=== PATIENT | male | born 1980 | race Caucasian/White ===

== ENCOUNTER 2019-01-28 18:58 | Emergency (ER) | payer OTHER ==
[~2019-01-28] VITALS: Ht 180.3 cm; Wt 102.1 kg
[2019-01-28] MEDS ORDERED: SYNTHROID175 MCG PO (19:15)
[2019-01-28] MEDS ORDERED: LISINOPRIL10 MG PO (19:15)
[2019-01-28] MEDS ORDERED: MULTIVITAMINS1 EAC7 PO (19:16)
[2019-01-28] MEDS ORDERED: ZYLOPRIM300 MG PO (19:17)
[2019-01-28] MEDS ORDERED: ZYRTEC10 M5 PO (19:17)
[2019-01-28 19:50] LABS: ANION GAP 11 mmol/L (7-16); BUN 15 mg/dL (7-18); CHLORIDE 104 mmol/L (98-107); CO2 26 mmol/L (21-32); CREATININE 1.2 mg/dL (0.7-1.3); GLUCOSE 159 mg/dL (74-106); POTASSIUM 3.3 mmol/L (3.5-5.1); SODIUM 141 mmol/L (136-145)
[2019-01-28 19:51] LABS: ABSOLUTE NEUTROPHILS 4.7 thou/uL (1.4-8.2); BASOPHILS 0.7 % (0.0-2.0); EOSINOPHILS 1.7 % (0.0-3.0); HEMOGLOBIN 14.2 gm/dL (14.0-18.0); LYMPHOCYTES 29.6 % (24.0-44.0); MCHC 33.1 g/dL (28.0-37.0); MCV 90.6 fL (80.0-100.0); MONOCYTES 8.6 % (1.0-8.0); PLATELET COUNT 267 thou/uL (150-400); POLYS 59.4 % (36.0-66.0); RBC 4.75 mil/uL (4.50-6.00); RDW 12.8 % (10.5-14.5); WBC 7.9 thou/uL (4.0-11.0)
[2019-01-28 20:01] LABS: ALBUMIN 4.5 g/dL (3.4-5.0); SGOT 34 U/L (15-37); SGPT 42 U/L (30-65); TOTAL BILIRUBIN 1.2 mg/dL (<0.1-1.0); TOTAL PROTEIN 7.7 g/dL (6.4-8.2); TROPONIN-I <0.06 ng/mL (<0.06)
[2019-01-28 20:41] VITALS: BP 140/86
--- NOTE | 2019-01-29 12:52 | EKG ---
[address] [address] ELECTROCARDIOGRAM REPORT Name: CECILY HOLLAND [id number] Admission: 01/28/19 Attend Phys: Discharge: 01/28/19 Date of : 76 Report #: [id number] THIS REPORT FOR: //name// [facility] ED Test Date: 2019-01-28 Test Time: 18:59:27 Pat Name: CECILY HOLLAND Department: Room: Gender: [facility] Coordinator: JACOB : 1980 Requested By: Peri Ontiveros Order Number: [id number] MD: Kang Cardenas Measurements Intervals Sod Rate: 105 P: 60 HI: 146 QRS: 87 QRSD: 99 T: 28 QT: 350 QTc: 463 Interpretive Statements Sinus tachycardia Probable left atrial enlargement No previous ECG available for comparison Electronically Signed On 01-29-2019 12:52:03 CDT by Kang Cardenas [email or web address] <ELECTRONICALLY SIGNED> By: Kang Cardenas MD 01/29/19 1252 1859 58 Kang Cardenas MD /DAMIEN
== END 2019-01-28 20:57 | disposition home or self-care (01) ==
LOC: ER 18:58
PROVIDERS: Emergency Medicine
DX: R07.89 Other chest pain (principal); E03.9 Hypothyroidism, unspecified